=== PATIENT | female | born 1940 ===

== ENCOUNTER → 2018-08-23 16:15 | Outpatient (REF) | payer MEDICARE, SELFPAY ==
[2018-08-23 16:51] LABS: INR 1.5 (0.9-1.3)
== END ==
LOC: LAB 16:15
PROVIDERS: Visit Provider Family Medicine
DX: E11.9 Type 2 diabetes mellitus without complications (principal); D63.8 Anemia in other chronic diseases classified elsewhere; I82.409 Acute embolism and thrombosis of unspecified deep veins of unspecified lower extremity
CPT/HCPCS: 85610